=== PATIENT | female | born 1940 | race Hispanic/Latino ===

== ENCOUNTER 2022-07-22 15:12 | Emergency (ER) | payer OTHER ==
[~2022-07-22] VITALS: Ht 129.5 cm; Wt 59.0 kg
[2022-07-22 15:14] VITALS: BP 137/29
== END 2022-07-22 18:59 ==
LOC: EDH 15:12
DX: I46.9 Cardiac arrest, cause unspecified (principal)
CPT/HCPCS: 31500; 92950